=== PATIENT | male | born 1975 | race Caucasian/White ===

== ENCOUNTER 2016-12-08 10:38 | Emergency (ER) | payer SELFPAY ==
[~2016-12-08 10:38] MED LIST: CORDROL20 MG PO; DAYPRO600 M1 PO; TRAMADOL HCL50 MG PO; ZANTAC150 MG PO; ZITHROMAX Z PA250 MG PO
[2016-12-08] MEDS ORDERED: AMOXICILLIN500 M2 PO (10:53)
[2016-12-08] MEDS ORDERED: Motrin,Rufen800 MG PO (10:53)
== END 2016-12-08 11:36 | disposition home or self-care (01) ==
LOC: ED 10:38
DX: K08.89 Other specified disorders of teeth and supporting structures (principal); F17.200 Nicotine dependence, unspecified, uncomplicated